=== PATIENT | male | born 2000 ===

== ENCOUNTER 2020-07-14 12:04 | Outpatient (CLI) | payer BC, SELFPAY | END 2020-07-14 12:05 | disposition home or self-care (01) | LOC: ANHCOVIDVC 12:04 | PROVIDERS: PCP Family Medicine | DX: Z23 Encounter for immunization (principal) | CPT/HCPCS: 0001A; 91300 ==

== ENCOUNTER 2020-08-04 13:18 | Outpatient (CLI) | payer BC, SELFPAY | END 2020-08-04 13:19 | disposition home or self-care (01) | LOC: ANHCOVIDVC 13:18 | PROVIDERS: PCP Family Medicine | DX: Z23 Encounter for immunization (principal) | CPT/HCPCS: 0002A; 91300 ==